=== PATIENT | male | born 1970 | race African-American/Black ===

== ENCOUNTER 2018-12-31 16:18 | Emergency (ER) | payer MEDICAID ==
[~2018-12-31] VITALS: Ht 175.3 cm; Wt 95.3 kg
[2018-12-31 16:28] VITALS: BP_SYST 144; BP_SYST 153; BP_DIAS 88; BP_DIAS 91
--- NOTE | 2018-12-31 16:39 | Emergency Room Report ---
History of Present Illness General Chief Complaint: Pain Source: Patient Present Illness HPI Patient is a 48-year-old male who presented after increased left-sided facial numbness and pain. Patient had prior history of injury to the left side of his face. He reports having increased pain to the left cheek. He denies any recent dental problems. He reports taking medications for his blood pressure but he does not recall what they are. He states he had been previously told he is borderline diabetic but is not currently taking his medications. Patient denies any weakness or numbness to his extremities. He denies any chest discomfort. Allergies: Coded Allergies: No Known Allergies (Unverified , 12/31/18) Patient History Past Medical History: see triage record Reviewed Nursing Documentation: PMH: Agreed; PSxH: Agreed Nursing Documentation-PMH Past Medical History: No History, Except For Hx Hypertension: Yes Review of Systems All Other Systems: negative except mentioned in HPI Physical Exam Vital Signs Date Time Temp Pulse Resp B/P (MAP) Pulse Ox O2 Delivery O2 Flow Rate FiO2 12/31/18 16:28 90 20 95 Room Air Sp02 EP Interpretation: reviewed, normal General Appearance: normal inspection, well appearing, no apparent distress, alert, GCS 15, non-toxic Head: atraumatic ENT: normal ENT inspection, hearing grossly normal, normal voice, other - left sided facial tenderness Neck: normal inspection, full range of motion, supple, no bony tend Respiratory: normal inspection, lungs clear, normal breath sounds, no respiratory distress, no retraction, no wheezing Cardiovascular #1: regular rate, rhythm, no edema Gastrointestinal: normal inspection, normal bowel sounds, non tender, soft, no guarding, no hernia Genitourinary: no CVA tenderness Musculoskeletal: normal inspection, back normal, normal range of motion Neurologic: normal inspection, alert, oriented x3, responsive, counter intelligence agent III-XII nml as tested, motor strength/tone normal, speech normal Psychiatric: normal inspection, judgement/insight normal, mood/affect normal Skin: normal inspection, normal color, no rash Medical Decision Making Diagnostic Impression: Primary Impression: Left facial pain ER Course Patient presented for left-sided facial pain and numbness. Differential diagnosis include was not limited to CVA, Vieira's palsy, trigeminal neuralgia, parotiditis. Because of complexity of patient's case laboratory testing and imaging studies were ordered.Patient noted to have elevated blood sugar.Patient was advised to follow-up with his primary care physician for reevaluation. He is given prescription for Keflex due to some tenderness to the left parotid gland and possible parotitis. Patient was advised to recheck with his primary care physician and to return if he began having any weakness to his extremities facial droop or other concerns. Last Vital Signs Date Time Temp Pulse Resp B/P (MAP) Pulse Ox O2 Delivery O2 Flow Rate FiO2 12/31/18 16:28 90 20 95 Room Air Status: improved Disposition: HOME, SELF-CARE Condition: Stable Scripts Ibuprofen* (MOTRIN*) 600 Mg Tablet 600 MG ORAL Q8H PRN for For Pain, #30 TAB 0 Refills Prov: Xavier Benjamin MD 12/31/18 Cephalexin* (KEFLEX*) 500 Mg Capsule 500 MG ORAL EVERY 6 HOURS, #28 CAP Prov: Xavier Benjamin MD 12/31/18 Xavier Benjamin MD December 31, 2018 16:39
--- NOTE | 2018-12-31 16:56 | Diagnostic Imaging Report ---
Indications: Left facial numbness Technique: Spiral acquisitions obtained through the brain. Angled axial and coronal 5 x 5 mm slices were reconstructed. Total dose length product 1414 mGycm. CTDI vol(s) 70.38 mGy. Dose reduction achieved using automated exposure control Comparison: None. Findings: No acute intracranial hemorrhage nor edema, mass effect, nor midline shift. Normal peñaloza-white differentiation. There is some subtle periventricular deep white matter low-attenuation adjacent to the frontal horns of the lateral ventricles bilaterally. Normal size ventricles and extra axial CSF spaces. Intact calvarium. Visualized orbits and sinuses are unremarkable. The mastoids are clear. Impression: Negative for acute intercranial bleed or mass effect Minimal periventricular deep white matter low-attenuation, appearance and distribution typical of chronic microvascular ischemic changes, but somewhat striking for age. Possibility of demyelinating disease should also be considered Stat code stroke findings phoned to Dr. Benjamin in the emergency room at the time of interpretation The CT scanner at [facility] is accredited by the [employer] and the scans are performed using protocols designed to limit radiation exposure to as low as reasonably achievable to attain images of sufficient resolution adequate for diagnostic evaluation.
[2018-12-31] MEDS ORDERED: Aspirin Baby 81mg ORAL ONE (17:15)
[2018-12-31] MEDS ORDERED: IBUPROFEN600 MG ORAL (17:17)
[2018-12-31] MEDS ORDERED: CEPHALEXIN500 MG ORAL (17:17)
[2018-12-31 17:45] VITALS: BP 132/87
== END 2018-12-31 17:45 | disposition home or self-care (01) ==
LOC: EMR 17:40
DX: R51 Headache (principal); R20.0 Anesthesia of skin; I10 Essential (primary) hypertension
CPT/HCPCS: 70450; 99284